=== PATIENT | male | born 2000 | race African-American/Black ===

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

== ENCOUNTER 2018-08-03 20:50 | Emergency (ER) | payer MEDICAID ==
[~2018-08-03] VITALS: Ht 172.7 cm; Wt 69.0 kg
[2018-08-04 00:27] LABS: CHLORIDE 106 mEq/L (98-107)
[2018-08-04 00:31] LABS: ETHANOL BLOOD < 10 mg/dL
[2018-08-04 00:36] LABS: HEMATOCRIT. 42.3 % (42.0-52.0); HEMOGLOBIN. 14.4 g/dL (14.0-18.0); MEAN CORPUSCULAR HEMOGLOBIN 28.7 pg (28.0-32.0); MEAN CORPUSCULAR VOLUME 84.6 fL (80.0-94.0); MEAN PLATELET VOLUME 8.1 fl (7.4-10.4); PLATELET 243 x1000/uL (130-400)
[2018-08-04 02:07] LABS: PLATELET ESTIMATE NORMAL
[2018-08-04 03:26] LABS: CLARITY URINE CLEAR (CLEAR); COLOR URINE YELLOW (YELLOW); KETONES URINE NEGATIVE (NEGATIVE); LEUKOCYTE ESTERASE URINE NEGATIVE (NEGATIVE); NITRITE URINE NEGATIVE (NEGATIVE); OCCULT BLOOD URINE NEGATIVE (NEGATIVE); PROTEIN URINE TRACE (NEGATIVE); SPECIFIC GRAVITY URINE 1.014 (1.005-1.030); UROBILINOGEN URINE 0.2 E.U./dL (0.2-1.0)
[2018-08-04 03:43] LABS: *AMPHETAMINES SCREEN URINE NEGATIVE (NEGATIVE); *BARBITURATES SCREEN URINE NEGATIVE (NEGATIVE); *BENZODIAZEPINES SCREEN URINE NEGATIVE (NEGATIVE); *COCAINE SCREEN URINE NEGATIVE (NEGATIVE)
[2018-08-04 03:44] LABS: CANNABINOID URINE SCREEN NEGATIVE (NEGATIVE); METHADONE URINE SCREEN NEGATIVE (NEGATIVE); OPIATES URINE SCREEN NEGATIVE (NEGATIVE); PHENCYCLIDINE URINE SCREEN NEGATIVE (NEGATIVE)
[2018-08-04 05:05] VITALS: BP 99/58
[2018-08-07 10:08] LABS: TOPIRAMATE None Detected ug/mL (2.0-25.0)
== END 2018-08-04 05:10 | disposition home or self-care (01) ==
LOC: ER 21:52
DX: R56.9 Unspecified convulsions (principal); D72.829 Elevated white blood cell count, unspecified
CPT/HCPCS: 36415; 80201; 80305; 82962; 99284

== ENCOUNTER 2019-04-05 12:38 | Emergency (ER) | payer MEDICAID ==
[~2019-04-05] VITALS: Ht 157.5 cm; Wt 62.0 kg
[2019-04-05 12:49] VITALS: BP 112/71
[2019-04-05] MEDS ORDERED: ACETAMINOPHEN 500MG TABLET PO ONE (15:00)
[2019-04-05] MEDS ORDERED: BACITRACIN ZINC OINT UDPKT TOP ONE (15:00)
== END 2019-04-05 16:03 | disposition home or self-care (01) ==
LOC: ER 12:38
DX: S50.311A Abrasion of right elbow, initial encounter (principal); S80.211A Abrasion, right knee, initial encounter; Z98.890 Other specified postprocedural states; Y08.89XA Assault by other specified means, initial encounter; Y93.89 Activity, other specified; Y92.89 Other specified places as the place of occurrence of the external cause; Y99.8 Other external cause status
CPT/HCPCS: 99283

== ENCOUNTER 2020-01-12 17:51 | Emergency (ER) | payer MEDICAID, OTHER ==
[~2020-01-12] VITALS: Ht 170.2 cm; Wt 73.0 kg
[2020-01-12] MEDS ORDERED: LIDOCAINE HCL/EPINEPHRINE 1%-EPI 1:100,000 20 ML VIAL INFIL ONE (18:45)
[2020-01-12] MEDS ORDERED: ACETAMINOPHEN 325MG TABLET PO ONE (18:45)
[2020-01-12] MEDS ORDERED: TETANUS, DIPHTHERIA, PERTUSSIS VAC/PF 0.5ML (>7YR OLD) IM ONE (20:45)
[2020-01-12] MEDS ORDERED: BACITRACIN ZINC OINT UDPKT TOP ONE (21:00)
[2020-01-12 21:17] VITALS: BP 108/68
== END 2020-01-12 21:17 | disposition home or self-care (01) ==
LOC: ER 17:51
DX: S81.011A Laceration without foreign body, right knee, initial encounter (principal); S61.210A Laceration without foreign body of right index finger without damage to nail, initial encounter; S71.012A Laceration without foreign body, left hip, initial encounter; R56.9 Unspecified convulsions; Y04.0XXA Assault by unarmed brawl or fight, initial encounter; Y93.89 Activity, other specified; Y92.9 Unspecified place or not applicable
CPT/HCPCS: 12002; 73140; 73560; 90471; 90715; 93005; 99284; J3490; 12001

== ENCOUNTER 2020-02-25 15:24 | Emergency (ER) | payer MEDICAID ==
[~2020-02-25] VITALS: Ht 172.7 cm; Wt 65.0 kg
[~2020-02-25 15:24] MED LIST changes: -DIVAL250 PO; -TOPI25TA48 PO
[2020-02-25 15:52] VITALS: BP 110/79
[2020-02-25] MEDS ORDERED: LIDOCAINE HCL/EPINEPHRINE 1%-EPI 1:100,000 30 ML VIAL INFIL ONE (17:45)
[2020-02-25 18:08] LABS: BASOPHILS % 0.7 % (0.0-2.0); HEMATOCRIT. 44.1 % (42.0-52.0); HEMOGLOBIN. 14.6 g/dL (14.0-18.0); MEAN CORPUSCULAR HEMOGLOBIN 28.9 pg (28.0-32.0); MEAN PLATELET VOLUME 8.1 fl (7.4-10.4); MONOCYTES % 5.3 % (2.0-8.0); PLATELET 228 x1000/uL (130-400); RED BLOOD CELL COUNT 5.06 mill/uL (4.7-6.1); RED CELL DISTRIBUTION WIDTH 13.4 % (11.6-14.6)
[2020-02-25 18:11] LABS: CHLORIDE 109 mEq/L (98-107)
[2020-02-25 18:16] LABS: ETHANOL BLOOD < 10 mg/dL
[2020-02-25] MEDS ORDERED: LIDOCAINE HCL/EPINEPHRINE 1%-EPI 1:100,000 20 ML VIAL INFIL NR (19:00)
== END 2020-02-25 22:19 | disposition home or self-care (01) ==
LOC: ER 15:24
DX: S06.0X9A Concussion with loss of consciousness of unspecified duration, initial encounter (principal); S01.112A Laceration without foreign body of left eyelid and periocular area, initial encounter; G40.909 Epilepsy, unspecified, not intractable, without status epilepticus; Y04.0XXA Assault by unarmed brawl or fight, initial encounter; Y93.89 Activity, other specified; Y92.018 Other place in single-family (private) house as the place of occurrence of the external cause
CPT/HCPCS: 12013; 36415; 80053; 80320; 84484; 85025; 93005; 99285; G0480

== ENCOUNTER 2022-06-03 12:18 | Emergency (ER) | payer MEDICAID ==
[~2022-06-03] VITALS: Ht 172.7 cm; Wt 66.0 kg
[2022-06-03 12:19] VITALS: BP 110/75
[2022-06-03] MEDS ORDERED: TOPI25TA48 MT (14:41)
[2022-06-03] MEDS ORDERED: DIVA500T3 MT (14:41)
== END 2022-06-03 15:14 | disposition home or self-care (01) ==
LOC: ER 12:18
DX: Z76.0 Encounter for issue of repeat prescription (principal); G40.909 Epilepsy, unspecified, not intractable, without status epilepticus
CPT/HCPCS: 99281

== ENCOUNTER 2023-07-13 19:33 | Emergency (ER) | payer MEDICAID ==
[~2023-07-13] VITALS: Ht 170.2 cm; Wt 69.0 kg
[~2023-07-13 19:33] MED LIST changes: +DIVA500T3 MT; +TOPI25TA48 MT
[2023-07-13 20:02] VITALS: BP 120/81; PULSE 68; RESP 14; TEMP 98.6; O2SAT 98
[2023-07-13] MEDS ORDERED: LACO150T2 MT (20:48)
[2023-07-13] MEDS ORDERED: LORAZEPAM 0.5MG TABLET PO ONE (21:30)
== END 2023-07-13 21:36 | disposition home or self-care (01) ==
LOC: ER 19:33
DX: R56.9 Unspecified convulsions (principal); Z76.0 Encounter for issue of repeat prescription; Z79.899 Other long term (current) drug therapy
CPT/HCPCS: 99283

== ENCOUNTER 2023-09-09 12:33 | Emergency (ER) | payer MEDICAID ==
[~2023-09-09] VITALS: Ht 177.8 cm; Wt 82.0 kg
[~2023-09-09 12:33] MED LIST changes: +LACO150T2 MT
[2023-09-09 12:44] VITALS: O2SAT 100
[2023-09-09] MEDS ORDERED: TOPI25TA48 MT (12:53)
[2023-09-09] MEDS ORDERED: LACO150T2 MT (12:53)
[2023-09-09] MEDS ORDERED: DIVA500T3 MT (12:53)
[2023-09-09 13:08] VITALS: BP 122/62; PULSE 80; RESP 18; TEMP 98
== END 2023-09-09 13:20 | disposition home or self-care (01) ==
LOC: ER 12:33
DX: R56.9 Unspecified convulsions (principal); Z76.0 Encounter for issue of repeat prescription; Z68.25 Body mass index [BMI] 25.0-25.9, adult
CPT/HCPCS: 99281

== ENCOUNTER 2024-10-30 22:03 | Emergency (ER) | payer MEDICAID ==
[~2024-10-30] VITALS: Ht 175.3 cm; Wt 100.0 kg
[~2024-10-30 22:03] MED LIST changes: +TOPI-252 MT; -TOPI25TA48 MT
[2024-10-30 22:05] VITALS: O2SAT 99
[2024-10-30] MEDS: DIVALPROEX SODIUM 250MG ER TABLET PO ONE (23:29)
[2024-10-30] MEDS: LACOSAMIDE 100MG TABLET PO STA (23:29)
[2024-10-31 02:44] VITALS: BP 112/80; PULSE 77; RESP 15; TEMP 36.8; O2SAT 98
== END 2024-10-31 02:49 | disposition home or self-care (01) ==
LOC: ER 22:03
DX: R56.9 Unspecified convulsions (principal); Z79.899 Other long term (current) drug therapy
CPT/HCPCS: 80339; 99283; Z7610 ×5